=== PATIENT | female | born 1980 | race Caucasian/White ===

== ENCOUNTER 2016-08-19 21:43 | Emergency (ER) | payer MEDICAID, MEDICARE, OTHER ==
[2016-08-19 22:08] VITALS: RESP 20; O2SAT 100
[2016-08-19] MEDS ORDERED: Sodium Chloride 0.9% 1,000 ML IV ONE (22:15)
--- NOTE | 2016-08-19 22:15 | C.PDOC ---
History Of Present Illness Patient presents to the ED complaining of vaginal bleeding since earlier tonight. Patient states she is 14 weeks ; 4, para 3. Patient also complains of a mild headache. Patient denies fever, chills, nausea, or vomiting. Time Seen by Provider: 08/19/16 22:15 Chief Complaint (Nursing): Female Genitourinary History Per: Patient History/Exam Limitations: no limitations Onset/Duration Of Symptoms: Hrs (tonight) Current Symptoms Are (Timing): Still Present Severity: Mild Pain Scale Rating Of: 3 Quality Of Discomfort: "Pain" Associated Symptoms: Other (headache) Alleviating Factors: None Recent travel outside of the [place]: No Abnormal Vaginal Bleeding: Yes : 4 Para: 3 Past Medical History Reviewed: Historical Data, Nursing Documentation, Vital Signs Vital Signs: Last Vital Signs Temp 98.4 F 08/19/16 22:05 Pulse 103 H 08/19/16 22:05 Resp 20 08/19/16 22:05 BP 123/81 08/19/16 22:05 Pulse Ox 100 08/19/16 23:15 Family History: States: Unknown Family Hx - Social History Hx Alcohol Use: No Hx Substance Use: No - Immunization History Hx Tetanus Toxoid Vaccination: No Hx Influenza Vaccination: No Hx Pneumococcal Vaccination: No Review Of Systems Constitutional: Negative for: Fever, Chills Cardiovascular: Negative for: Chest Pain Respiratory: Negative for: Shortness of Breath Gastrointestinal: Negative for: Nausea, Vomiting Genitourinary: Positive for: Vaginal Bleeding Skin: Negative for: Rash, Lesions, Jaundice Neurological: Positive for: Headache Psych: Negative for: Anxiety Physical Exam - Physical Exam Appears: Non-toxic, No Acute Distress Skin: Warm, Dry Head: Atraumatic, Normacephalic Eye(s): bilateral: PERRL, EOMI Oral Mucosa: Moist Neck: Supple Chest: Symmetrical Cardiovascular: Rhythm Regular Respiratory: No Rales, No Rhonchi, No Wheezing Gastrointestinal/Abdominal: Soft, No Tenderness, No Guarding, No Rebound Back: No CVA Tenderness Extremity: Bilateral: Atraumatic, Normal Color And Temperature Neurological/Psych: Oriented x3, Normal Speech, Normal Cognition Gait: Steady ED Course And Treatment - Laboratory Results Result Diagrams: 08/19/16 23:40 08/19/16 23:40 O2 Sat by Pulse Oximetry: 100 (RA) Pulse Ox Interpretation: Normal - CT Scan/US OB US Other Rad Studies (CT/US): Read By Radiologist (Lefty Irvin MD), Radiology Report Reviewed CT/US Interpretation: FINDINGS: Fetus: Intrauterine is present. Yolk sac is not seen. The fetus is 8.2 cm, 14 weeks and 1. day gestation. Placenta/ amniotic fluid: Cannot be adequately evaluated due to the early gestational age. Uterus/cervix: Cervix is closed 4.2 cm. The uterus measures 13.9 cm. No myometrial mass. Ovaries: Maternal ovaries are not well seen. Free fluid: No free fluid. Other findings: FHR 146 beats per minute. IMPRESSION: Cheung viable , 14 weeks 1 day gestation. The cervix appears closed. Progress Note: Plan: Labs, Macrobid, IV fluids, Tylenol, OB US Reevaluation Time: 00:20 Reassessment Condition: Improved Disposition Counseled Patient/Family Regarding: Studies Performed, Diagnosis, Need For Followup, Rx Given - Disposition Referrals: [facility] [Outside] Disposition: HOME/ ROUTINE Disposition Time: 22:15 Condition: FAIR Prescriptions: Nitrofurantoin Macrocrystals [Macrobid] 1 cap PO BID #14 cap Instructions: Threatened Miscarriage (ED), Urinary Tract Infection in (ED) - Clinical Impression Clinical Impression: Threatened , UTI (urinary tract infection) - Scribe Statement The provider has reviewed the documentation as recorded by the Scribe Ayana Raman Provider Attestation: All medical record entries made by the Scribe were at my direction and personally dictated by me. I have reviewed the chart and agree that the record accurately reflects my personal performance of the history, physical exam, medical decision making, and the department course for this patient. I have also personally directed, reviewed, and agree with the discharge instructions and disposition.
[2016-08-19 22:30] LABS: URINE BACTERIA MOD (<OCC); URINE BILIRUBIN NEGATIVE (NEGATIVE); URINE BLOOD NEGATIVE (NEGATIVE); URINE GLUCOSE (UA) NORMAL (Normal); URINE KETONE 2+ mg/dL (NEGATIVE); URINE LEUKOCYTE ESTERASE 2+ Leu/uL (Negative); URINE PROTEIN 1+ mg/dL (NEGATIVE); URINE UROBILINOGEN NORMAL mg/dL (0.2-1.0); WBC URINE 48 /hpf (0-5)
[2016-08-19 22:56] LABS: URINE COLOR YELLOW (YELLOW)
[2016-08-19] MEDS ORDERED: Sodium Chloride 0.9% 1,000 ML ONE (23:18)
[2016-08-19 23:44] LABS: BASO # 0.1 K/uL (0.0-0.2); BASO % 1.1 % (0.0-2.0); EOS # 0.1 K/uL (0.0-0.7); EOS % 1.5 % (0.0-4.0); HEMATOCRIT 39.5 % (34.0-47.0); LYMPH % 25.8 % (20.0-40.0); MEAN CELL VOLUME 83.9 fL (81.0-99.0); MEAN CORPUSCULAR HEMOGLOBIN 27.2 pg (27.0-31.0); MEAN CORPUSCULAR HGB CONC 32.4 g/dL (33.0-37.0); MEAN PLATELET VOLUME 7.7 fL (7.2-11.7); MONO # 0.5 K/uL (0.0-0.8); MONO % 6.8 % (0.0-10.0); RED CELL DISTRIBUTION WIDTH 13.2 % (11.5-14.5); WHITE BLOOD COUNT 7.9 K/uL (4.8-10.8)
[2016-08-19 23:53] LABS: CHLORIDE 105 mmol/L (98-107); SODIUM 135 mmol/L (132-148)
[2016-08-19 23:54] LABS: POTASSIUM 4.2 mmol/L (3.6-5.2)
[2016-08-19 23:56] LABS: ALB/GLOB RATIO 1.1 (1.0-2.1); ALKALINE PHOSPHATASE 56 U/L (38-126); ALT/SGPT 23 U/L (9-52); AST/SGOT 30 U/L (14-36); BILIRUBIN,TOTAL 0.6 mg/dL (0.2-1.3); BLOOD UREA NITROGEN 11 mg/dL (7-17); CARBON DIOXIDE 18 mmol/L (22-30); GFR AFRICAN-AMERICAN > 60; GLUCOSE,RANDOM 84 mg/dL (65-105)
[2016-08-19 23:57] LABS: CALCIUM 8.5 mg/dl (8.6-10.4)
[2016-08-20 01:02] VITALS: BP 139/80; PULSE 88; TEMP 98
--- NOTE | 2016-08-20 10:22 | US ---
Pelvic ultrasound History: Vaginal bleeding. Comparison: None available. Technique: Real-time sonography was performed through the pelvis utilizing transabdominal technique. Findings: Limited study for viability purposes only. Dedicated anatomic survey recommended at an interval date. Uterus: 13.9 x 8.7 x 10.4 centimeters. Anteverted. Cervix measures 4.2 centimeters. Intrauterine gestational sac identified. Shelburn-rump length measures 8.3 centimeters corresponding to a gestational age of 14 weeks and 1 day. heart rate of 146 beats per minute. No free fluid in the pelvic cul-de-sac. Bilateral ovaries not well visualized. Impression: Limited ultrasound for viability purposes only. Dedicated anatomic survey at an interval date is recommended. Single viable intrauterine corresponding to a gestational age of approximately 14 weeks and 1 day by crown-rump length of 8.3 centimeters. Limited 1st trimester ultrasound for viability purposes only. Continued interval followup with serial ultrasound, serial HCG levels, and gynecological consultation would be helpful if clinically indicated. These findings were preliminarily reported at 11:01 p.m. on 08/19/[address] Lefty Irvin from [employer].
== END 2016-08-20 01:10 | disposition home or self-care (01) ==
LOC: C.ER 21:43
DX: O20.0 Threatened abortion (principal); O23.42 Unspecified infection of urinary tract in pregnancy, second trimester; Z3A.14 14 weeks gestation of pregnancy
CPT/HCPCS: 76815; 80053; 81001; 84702; 84703; 85025; 85610; 85730; 86850; 86900; 96360; 99284; J7040

== ENCOUNTER 2016-12-17 02:02 | Emergency (ER) | payer MEDICAID, MEDICARE, OTHER ==
[2016-12-17 02:16] VITALS: TEMP 98.1; O2SAT 98
[2016-12-17] MEDS ORDERED: Albuterol-Ipratrop 3 mg / 0.5 (3 ml) UD INH STA (02:34)
[2016-12-17] MEDS ORDERED: Albuterol-Ipratrop 3 mg / 0.5 (3 ml) UD ONE (02:56)
--- NOTE | 2016-12-17 03:07 | C.PDOC ---
History Of Present Illness The patient reports that she has been experiencing headache and body aches which is associated with runny nose and cough. The patient reports that she has a PMHx of asthma and has been taking an inhaler with only mild relief. Denies fever, vomiting, hemoptysis. Patient also reports 3 day history of vaginal spotting and pelvic pain. Time Seen by Provider: 12/17/16 02:19 Chief Complaint (Nursing): Shortness Of Breath History Per: Patient History/Exam Limitations: no limitations Onset/Duration Of Symptoms: Persistent Current Symptoms Are (Timing): Still Present Initiating Event: Upper Respiratory Illness Quality: Aching Current Respiratory Medications: Albuterol Associated Symptoms: denies: Fever, Chills, Bloody Cough, Heart Racing, Leg/ Calf Pain, Ankle/Leg Swelling Past Medical History Reviewed: Historical Data, Nursing Documentation, Vital Signs Vital Signs: Last Vital Signs Temp 98.1 F 12/17/16 02:10 Pulse 80 12/17/16 03:00 Resp 16 12/17/16 03:00 BP 110/70 12/17/16 03:00 Pulse Ox 98 12/17/16 05:13 - Medical History PMH: Asthma Family History: States: Unknown Family Hx - Social History Hx Alcohol Use: No Hx Substance Use: No - Immunization History Hx Tetanus Toxoid Vaccination: No Hx Influenza Vaccination: No Hx Pneumococcal Vaccination: No Review Of Systems Except As Marked, All Systems Reviewed And Found Negative. Physical Exam - Physical Exam Appears: Well, No Acute Distress Skin: Normal Color, Warm, Dry, No Rash Head: Atraumatic, Normacephalic Eye(s): bilateral: Normal Inspection, PERRL, EOMI Nose: Normal Oral Mucosa: Moist Throat: Normal, No Erythema, No Exudate Neck: Normal ROM, Supple Lymphatic: Normal Exam Chest: Symmetrical, No Tenderness Cardiovascular: Rhythm Regular, No Friction Rub, No Murmur Respiratory: Normal Breath Sounds, No Rales, No Rhonchi, No Stridor, No Wheezing Gastrointestinal/Abdominal: Normal Exam, Soft, No Tenderness Back: Normal Inspection, No CVA Tenderness Extremity: Normal ROM, No Swelling Neurological/Psych: Oriented x3, Normal Speech, Normal Cranial Nerves, Normal Motor Gait: Steady ED Course And Treatment O2 Sat by Pulse Oximetry: 98 (on RA) Pulse Ox Interpretation: Normal Medical Decision Making Medical Decision Making: \The case was discussed with Dr. Piedra ([facility]) who agrees the symptoms sound like bronchitis, and it is safe to given predisone and claritiin at this time. Dr. Piedra also states to have the patient sent to L&D floor for monitoring after treatment. Disposition - Disposition Referrals: [facility] [Outside] Disposition: HOME/ ROUTINE Disposition Time: 03:05 Condition: GOOD Additional Instructions: Follow up with the Medical doctor within 1-2 days. return if worsened, Prescriptions: Loratadine [Claritin] 10 mg PO DAILY #10 tab predniSONE [Prednisone] 20 mg PO BID #10 tab Instructions: Acute Bronchitis (ED) Forms: [facility] (Swedish) - Clinical Impression Clinical Impression: Bronchitis
[2016-12-17 03:32] VITALS: BP 110/70; PULSE 80; RESP 16
--- NOTE | 2016-12-17 03:59 | OBDCSUM ---
Datetime: 12/17/2016 03:57 Discharged to, Provider: Home Follow up at, Provider: fridy Follow up at, Provider: DR MODI Disch Instr Activity: Normal activity Disch Instr Diet: Regular Discharge Time: 12/17/2016 03:57 Follow up in weeks, Provider: uday Follow up in weeks, Provider: NEXT APPT Discharge Comment, Provider: dc home ptl given po hyration f/u dr modi on friday Discharge Diagnosis Prov Other: 31week nst asth,a exerbation
--- NOTE | 2016-12-17 04:00 | OBHP ---
Datetime: 12/17/2016 03:55 IP Adm Impression: , intrauterine IP Chief Complaint Other: nst IP Admit Plan: Discharge home Admit Comment, IP Provider: at 31weeks send from er for nst . pt was in the er for asthma exerb ation. fels better. no ctxs, vb, lof,+fm.no sob obhx 3 x pmh asthma med albutrol all nkda ph de soch de /p at 31weks asthma exerbation/nst dc home ptl given po hyration f/u dr frye on friday Pelvic Type - PN: Adequate Extremities - PN: Normal Abdomen - PN: Normal Back - PN: Normal Breast - PN: Normal Lungs - PN: Normal Heart - PN: Normal Thyroid - PN: Normal Neurologic - PN: Normal HEENT - PN: Normal General - PN: Normal FHR - Baseline A Provider: 130 Contraction Comments Provider: none Vital Signs Provider: Reviewed; Within Normal Limits NICHD Variability Prov Fetus A: Moderate 6-25bpm NICHD Accel Fetus A IP Provider: 10X10 FHR Category Provider Fetus A: Category I Genitourinary Exam: Normal DTRs - PN: Normal
== END 2016-12-17 04:00 | disposition home or self-care (01) ==
LOC: C.EROB 02:02 → C.ER 02:02 → C.EROB 03:31
DX: O99.513 Diseases of the respiratory system complicating pregnancy, third trimester (principal); J40 Bronchitis, not specified as acute or chronic; Z3A.31 31 weeks gestation of pregnancy

== ENCOUNTER 2017-01-07 00:48 | Emergency (ER) | payer MEDICAID ==
[2017-01-07 01:48] VITALS: BMI 36.8
[2017-01-07] MEDS ORDERED: Betamethasone Soluspan 30 mg/5mL Inj Susp IM ONE (01:50)
[2017-01-07] MEDS ORDERED: Magnesium Sulfate 4 gm/100 ml 4 GM/100 ML BAG IVPB ONE (01:51)
[2017-01-07] MEDS ORDERED: Lactated Ringer's 1,000 ML IV SCH (02:00)
--- NOTE | 2017-01-07 02:35 | OBHP ---
Datetime: 01/07/2017 02:05 IP Adm Impression: , intrauterine IP Chief Complaint Other: Abdominal pressure IP Adm Impression Other: Threatened labor IP Admit Plan: Initiate labor protocol IP Admit Plan Other: Transfer to [facility] Admit Comment, IP Provider: 36 y.o. , LMP unsure, JONATHAN 02/12/17, EGA 34w 6d c/o sharp lower a bdominal pain "on and off" x 1 month, ... "now more constant"; described as pressure "like I'm in lab or", pain scale 10/10. And vaginal spotting, also on and off x 1 month. (+) AFM; denies LOF. Prenata l care: Dr. Madrid; last visit 12/27/16; next visit 01/17/17; denies any issues, except UTI in first or second trimester. P OB: x 3, all FT, 1995, female, 6lb 2oz, gest HTN; LICH; 1997, female 6lb 3oz, [facility] ; 2006, male 7lb 2oz, [facility]. 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 Denies STIs PMH: h/o asthma PSH: D_C x 2; 2006, fractured bones in left ankle - rods and pins placed; 2007, removal of fluid f rom knees, bilaterally; 2010, abdominoplasty NKDA Food allergy = seafood - swelling, shortness of breath Soc Hx: prev tobacco use prior to pre cig / day on and off x 10 years. Denies current EtOH use ; deines illicit drug use. With current FOB x 6-7 months; (+) cohabitation. Fam Hx: Mother alive 63 y.o. HTN. Father age 50+ - S/P CVA and AR wiwth H/O HTN. Pat au nt - throat cancer P.E.: as above. Mild obese in some discomfort, NAD. Awake, alert. oriented to time, person and pl eusebio. FOB present Assesment: 36 y.o. P3023, 34w 6d, threatened PTL. Category 1 tracing. Discussed with patient: 1) administraiton of celestone for lung maturity, and mitigating NEC and IVH; 2) magnesium sulphat e to slow down/stop contractions; 3) antibiotics - prophylaxis for any possible infection; 4) transfe r to [facility] institution as a precaution for delivery. This was after discussion with her private Ob provider Dr. Madrid. Patient expressed an understanding and agrees to the transfer. Dr. Laura prieto spoke with M, Dr. Allred; Dr. Allred has accepted the transfer. Patient is clinically stble. Plan: 1) Transfer to [facility] 2) Ampicillin 2gm IVPB x 1 3) Magnesium sulphate 4 mg load over 30 minutes 4) Celestone 12 mg IM x 1 dose 5) U/A 6) Drug screen - as per, and discussed, with Dr. Madrid Pelvic Type - PN: Adequate Extremities - PN: Normal Abdomen - PN: Normal Back - PN: Normal Breast - PN: Not Done Lungs - PN: Normal Heart - PN: Normal Thyroid - PN: Not Done Neurologic - PN: Normal HEENT - PN: Normal General - PN: Normal Presentation-Admit: Vertex FHR - Baseline A Provider: 130 Membranes, Provider: Intact Contraction Comments Provider: minimal uterine irritability Comments, ACOG Physical Exam: Abdomen: Gravid. Soft. (+) suprapubic tenderness. Healed abdominoplas ty scar All other systems reviewed and are negative Gestation - Est Wks by US: 34w 6d EGA AdmitDate IP: 34.6 Vital Signs Provider: Reviewed; Within Normal Limits IP Chief Complaint: Other NICHD Variability Prov Fetus A: Moderate 6-25bpm NICHD Accel Fetus A IP Provider: 15X15 FHR Category Provider Fetus A: Category I NICHD Decel Fetus A IP Provider: None Dilatation, Provider: 2-3 Effacement, Provider: 40 Station, Provider: -3 to -2 Genitourinary Exam: Normal DTRs - PN: Not Done
[2017-01-07 02:45] LABS: RBC URINE 6 /hpf (0-3); URINE BACTERIA OCC (<OCC); URINE BILIRUBIN NEGATIVE (NEGATIVE); URINE COLOR Amber (YELLOW); URINE GLUCOSE (UA) NORMAL (Normal); URINE HYALINE CAST 0-2 /lpf (0-2); URINE KETONE 2+ mg/dL (NEGATIVE); URINE LEUKOCYTE ESTERASE 2+ Leu/uL (Negative); URINE PROTEIN 1+ mg/dL (NEGATIVE); URINE UROBILINOGEN NORMAL mg/dL (0.2-1.0); WBC URINE 10 /hpf (0-5)
[2017-01-07 02:48] LABS: URINE BLOOD TRACE (NEGATIVE)
[2017-01-13 14:49] VITALS: BP 128/62; PULSE 86; RESP 20; TEMP 98.1
== END 2017-01-07 02:58 | disposition short-term general hospital (02) ==
LOC: C.EROB 00:48
DX: O26.893 Other specified pregnancy related conditions, third trimester (principal); R10.30 Lower abdominal pain, unspecified; Z3A.34 34 weeks gestation of pregnancy
CPT/HCPCS: 80324; 80345; 80346; 80349; 80353; 80358; 80361; 81001; 83992; 99283; J0290; J0702; J3475; J7120

== ENCOUNTER 2017-02-03 13:19 | Inpatient (IN) | payer MEDICAID ==
--- NOTE | 2017-02-03 13:52 | OBADHP ---
Datetime: 02/03/2017 13:11 Admit Comment, IP Provider: 36 y.o. , LMP unsure, JONATHAN 02/12/17, EGA 38w 5d c/o contraction p ain every 3-5 min with vaignal spotting, deies any lof, +FM> pt was seen by OBGYN earlier today c/o o f pain and sent in for evaluation and was 3cm dilated. Pt was hsopiatize at 34+ wk for labor and given steriods for lung maturity. P OB: x 3, all FT, 1995, female, 6lb 2oz, gest HTN; LICH; 1997, female 6lb 3oz, [facility] ; 2006, male 7lb 2oz, [facility]. 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 Denies STIs PMH: h/o asthma PSH: D_C x 2; 2006, fractured bones in left ankle - rods and pins placed; 2007, removal of fluid f rom knees, bilaterally; 2010, abdominoplasty NKDA Food allergy = seafood - swelling, shortness of breath Soc Hx: prev tobacco use prior to pre cig / day on and off x 10 years. Denies current EtOH use ; deines illicit drug use. With current FOB x 6-7 months; (+) cohabitation. Fam Hx: Mother alive 63 y.o. HTN. Father age 50+ - S/P CVA and PR wiwth H/O HTN. Pat au nt - throat cancer Assesment: 36 y.o. P3023 @ 38.5 wks mulitparous in active labor, gbs positive admit to l=d npo, ivf admissin labs pcn for gbs prophylsicax anestheis prn Plan: 1) Transfer to [facility] 2) Ampicillin 2gm IVPB x 1 3) Magnesium sulphate 4 mg load over 30 minutes 4) Celestone 12 mg IM x 1 dose 5) U/A 6) Drug screen - as per, and discussed, with Dr. Madrid Pelvic Type - PN: Adequate Extremities - PN: Normal Abdomen - PN: Normal Back - PN: Normal Breast - PN: Not Done Lungs - PN: Normal Heart - PN: Normal Thyroid - PN: Normal HEENT - PN: Normal General - PN: Normal Weight - Estimated: 3300 Presentation-Admit: Vertex FHR - Baseline A Provider: 130 Membranes, Provider: Intact Gestation - Est Wks by US: 38.5 IP Hx Assessment: The History has been Reviewed and is Current Vital Signs Provider: Reviewed; Within Normal Limits IP Chief Complaint: Uterine contractions NICHD Variability Prov Fetus A: Moderate 6-25bpm NICHD Decel Fetus A IP Provider: None Dilatation, Provider: 5 Effacement, Provider: 70 Station, Provider: -2 Genitourinary Exam: Normal DTRs - PN: Normal EGA AdmitDate IP: 38.5 IP Adm Impression: Term, intrauterine IP Admit Plan: Admit to unit Datetime: 01/07/2017 02:05 IP Chief Complaint Other: Abdominal pressure IP Adm Impression Other: Threatened labor IP Admit Plan Other: Transfer to [facility] Neurologic - PN: Normal Contraction Comments Provider: minimal uterine irritability Comments, ACOG Physical Exam: Abdomen: Gravid. Soft. (+) suprapubic tenderness. Healed abdominoplas ty scar All other systems reviewed and are negative NICHD Accel Fetus A IP Provider: 15X15 FHR Category Provider Fetus A: Category I
[2017-02-03] MEDS ORDERED: Penicillin G 5 Million Unit Vial IVPB ONE ×3 (14:33→15:01)
[2017-02-03] MEDS ORDERED: Lactated Ringer's 1,000 ML IV SCH (14:45)
[2017-02-03] MEDS ORDERED: Nalbuphine 20 mg/ml Inj (1 ml) ONE ×2 (15:22→18:56)
[2017-02-03] MEDS ORDERED: Nalbuphine 20 mg/ml Inj (1 ml) IVP PRN ×2 (15:30→18:15)
[2017-02-03 16:19] LABS: BASO # 0.1 K/uL (0.0-0.2); BASO % 1.2 % (0.0-2.0); EOS # 0.2 K/uL (0.0-0.7); EOS % 2.4 % (0.0-4.0); HEMATOCRIT 34.7 % (34.0-47.0); LYMPH # 1.6 K/uL (1.0-4.3); LYMPH % 23.7 % (20.0-40.0); MEAN CELL VOLUME 83.8 fL (81.0-99.0); MEAN CORPUSCULAR HEMOGLOBIN 27.1 pg (27.0-31.0); MEAN CORPUSCULAR HGB CONC 32.4 g/dL (33.0-37.0); MEAN PLATELET VOLUME 8.7 fL (7.2-11.7); MONO # 0.6 K/uL (0.0-0.8); MONO % 9.2 % (0.0-10.0); RED CELL DISTRIBUTION WIDTH 13.5 % (11.5-14.5)
[2017-02-03] MEDS ORDERED: Oxytocin 30 UNIT 30 UNITS/500 ML BAG IV ONE (16:24)
[2017-02-03] MEDS ORDERED: Oxytocin 30 UNIT 30 UNITS/500 ML BAG IV SCH ×2 (16:30→18:45)
--- NOTE | 2017-02-03 17:06 | OBPN ---
Datetime: 02/03/2017 17:03 IP Progress Impression: Normal progression of labor IP Procedures: Artificial ROM IP Progress Plan: Continue present management Contraction Comments Provider: q 2 min FHR - Baseline A Provider: 125 Gestation - Est Wks by US: 38.5 Presentation-Admit: Vertex IP Progress Note Comment: pt seen and examined, reports intermitten pain , does not desire an peidur al. s/p iv pain medication VSS EMF: Cat I TOCO: q 2 min A/P P3 @ 38.5 wks GA in active labor -s/p AROM and pitoicn as per Dr Britany STEPHEN Variability Prov Fetus A: Moderate 6-25bpm Dilatation, Provider: 6 Effacement, Provider: 80 Station, Provider: -2 ZAFAR Decel Fetus A IP Provider: None Datetime: 02/03/2017 13:11 Membranes, Provider: Intact Weight - Estimated: 3300 Vital Signs Provider: Reviewed; Within Normal Limits Datetime: 01/07/2017 02:05 NICHD Accel Fetus A IP Provider: 15X15 FHR Category Provider Fetus A: Category I
[2017-02-03 17:10] LABS: RAPID PLASMA REAGIN NONREACTIVE (NONREACTIVE)
[2017-02-03] MEDS ORDERED: Oxycodone/Acetaminophen 5/325 mg Tab PO PRN (18:43)
[2017-02-03] MEDS ORDERED: Benzocaine/Menthol 20%-0.5% Topical Spray (60 ml) TOP PRN (18:43)
[2017-02-03] MEDS ORDERED: Lidocaine 2% Inj (20ml) ONE (19:01)
[2017-02-03] MEDS ORDERED: Oxycodone/Acetaminophen 5/325 mg Tab ONE (19:29)
[2017-02-03] MEDS: Oxycodone/Acetaminophen 5/325 mg Tab PO PRN (19:33)
[2017-02-04] MEDS: Oxycodone/Acetaminophen 5/325 mg Tab PO PRN ×3 (00:44→21:58)
--- NOTE | 2017-02-04 01:46 | OP ---
DELIVERY NOTE PROCEDURE DATE: DESCRIPTION OF PROCEDURE: The patient underwent a normal spontaneous vaginal delivery of a live female infant, Apgars 9 at 1 minute and 9 at 5 minutes, all by an intact perineum. The patient had a nuchal cords x1 and cord x1 around the leg, which were easily untangled. Cord that was doubly clamped and cut and the baby was handed over to the crimping machine operator who was in attendance. Cord blood was collected, placenta was manually removed and uterus was massaged with good hemostasis. Inspection of the perineum reviewed first degree superficial tear, which was closed with a single suture with 2-0 chromic after infiltration with lidocaine. Pad, needle, and instruments counts were x2. There were no complications. The patient was then transferred to the recovery room in stable condition. Ant Grissom MD
[2017-02-04 08:16] LABS: BASO % 0.3 % (0.0-2.0); EOS # 0.2 K/uL (0.0-0.7); EOS % 1.8 % (0.0-4.0); HEMATOCRIT 33.6 % (34.0-47.0); LYMPH # 1.8 K/uL (1.0-4.3); LYMPH % 19.3 % (20.0-40.0); MEAN CELL VOLUME 82.8 fL (81.0-99.0); MEAN CORPUSCULAR HEMOGLOBIN 27.8 pg (27.0-31.0); MEAN CORPUSCULAR HGB CONC 33.6 g/dL (33.0-37.0); MEAN PLATELET VOLUME 8.3 fL (7.2-11.7); MONO # 0.6 K/uL (0.0-0.8); RED CELL DISTRIBUTION WIDTH 13.5 % (11.5-14.5); WHITE BLOOD COUNT 9.6 K/uL (4.8-10.8)
[2017-02-04 08:34] LABS: CHLORIDE 104 mmol/L (98-107); POTASSIUM 3.8 mmol/L (3.6-5.2); SODIUM 137 mmol/L (132-148)
[2017-02-04 08:36] LABS: AST/SGOT 32 U/L (14-36); BILIRUBIN,TOTAL 0.5 mg/dL (0.2-1.3); CARBON DIOXIDE 22 mmol/L (22-30); GFR AFRICAN-AMERICAN > 60
[2017-02-04 08:37] LABS: ALB/GLOB RATIO 0.8 (1.0-2.1); ALKALINE PHOSPHATASE 113 U/L (38-126); ALT/SGPT 38 U/L (9-52); BLOOD UREA NITROGEN 6 mg/dL (7-17); CALCIUM 8.6 mg/dl (8.6-10.4); GLUCOSE,RANDOM 105 mg/dL (65-105); TOTAL PROTEIN 6.7 g/dL (6.3-8.3)
[2017-02-04 10:49] VITALS: O2SAT 98
[2017-02-05] MEDS: Oxycodone/Acetaminophen 5/325 mg Tab PO PRN (04:41)
[2017-02-05 08:35] VITALS: BP 107/61; PULSE 65; RESP 18; TEMP 97.9
[2017-02-05] MEDS ORDERED: Influenza Vaccine 60 mcg/0.5 mL SYR (4YR UP) IM ONE (11:11)
--- NOTE | 2017-02-05 13:46 | PN ---
DATE: SUBJECTIVE: The patient has no complaints. OBJECTIVE: VITAL SIGNS: Stable. She is afebrile. ABDOMEN: Soft. Bowel sounds are normal. Fundus is firm. Lochia is scant. EXTREMITIES: Nontender with no evidence of DVT. Gini's sign is negative. BREASTS: Reveal no engorgement. ASSESSMENT: The patient is status post normal spontaneous vaginal delivery, day 2. PLAN: Plan is to discharge the patient on Motrin 800 mg q.6 hourly p.r.n. for a total of 40 tablets, to be followed up in the office in 6 weeks. Ant Grissom MD
--- NOTE | 2017-02-05 16:26 | DS ---
The patient was admitted in early labor. She is 4, para 3 at 38 weeks' gestation. She underwent a normal spontaneous vaginal delivery over intact perineum, . She had no complaints. She was discharged home on day #2, on Motrin 800 mg q. 6 hours p.r.n. for a total of 40 tablets to be followed up in the office in 6 weeks. Ant Grissom MD MADONNA
--- NOTE | 2017-02-24 12:03 | OBDS ---
DELIVERY PERSONNEL Delivery Doctor: Deloris Grissom MD Recyclable Materials Sorter: Kyler Gambino RN MATERNAL INFORMATION Delivery Anesthesia: Local Medications in Delivery: methergine .2 mg.nubain 10 mg ivp [id number] Estimated Blood Loss (ml): 400 LABOR SUMMARY EDC: 02/12/2017 00:00 No. Babies in Womb: 1 Attempted: No Labor Anesthesia: IV Sedation LABOR INFORMATION Onset of Labor: 02/03/2017 10:00 Complete Dilatation: 02/03/2017 18:30 Oxytocin: Augmentation Group B Beta Strep: Positive MEMBRANES Membranes Rupture Method: Artificial Rupture of Membranes: 02/03/2017 16:57 Length of Rupture (hrs): 1.60 Amniotic Fluid Color: Bloody Amniotic Fluid Amount: Scant Amniotic Fluid Odor: Normal STAGES OF LABOR Stage 1 hrs: 8 Stage 1 min: 30 Stage 2 hrs: 0 Stage 2 min: 3 Stage 3 hrs: 0 Stage 3 min: 17 Total Time in Labor hrs: 8 Total Time in Labor min: 50 VAGINAL DELIVERY Laceration Type: Perineal Initial Vag Sponge Count: 10 Final Vag Sponge Count: 10 Sponge Count Correct: Yes Sharps Count Correct: Yes BABY A INFORMATION Infant Delivery Date/Time: 02/03/2017 18:33 Method of Delivery: Vaginal Born in Route : No : N/A Forceps: N/A Vacuum Extraction: N/A Shoulder Dystocia : No SHOULDER DYSTOCIA BABY A Delivery Date/Time: 02/03/2017 18:33 PRESENTATION/POSITION BABY A Presentation: Cephalic Cephalic Presentation: Vertex Vertex Position: Left Occipital Anterior Breech Presentation: N/A PLACENTA INFORMATION BABY A Placenta Delivery Time : 02/03/2017 18:50 Placenta Method of Delivery: Spontaneous Placenta Status: Delivered SCORES BABY A Heart Rate 1 min: >100 bpm Resp Effort 1 min: Good Cry Reflex Irritability 1 min: Cough or Sneeze or Pulls Away Muscle Tone 1 min: Active Motion Color 1 min: Body [place], Extremities Blue Resuscitation Effort 1 min: N/A SCORE 1 MIN: 9 Heart Rate 5 min: >100 bpm Resp Effort 5 min: Good Cry Reflex Irritability 5 min: Cough or Sneeze or Pulls Away Muscle Tone 5 min: Active Motion Color 5 min: Body [place], Extremities Blue Resuscitation Effort 5 min: N/A SCORE 5 MIN: 9 INFANT INFORMATION BABY A Gestational Age at Delivery: 38.6 Gestational Status: Term Outcome : Liveborn Condition : Stable Infant Sex: Female IDENTIFICATION/MEDS BABY A Sensor Applied: Yes WEIGHT/LENGTH BABY A Infant Birthweight (gms): 3250 Weight (lb): 7 Infant Weight (oz): 3 Length Inches: 19.50 Infant Length cms: 49.5 CORD INFORMATION BABY A No. Cord Vessels: 3 Nuchal Cord : Around Neck x1, Loose Nuchal Cord Other: body Cord Blood Taken: Yes Infant Suction: Mouth; Nose ASSESSMENT BABY A Complications: None Physical Findings at Delivery: Within Normal Limits Infant Respirations: Appears Normal Submarine Element Coordinator/ALS Called : No Transferred To: Remains with Mother
== END 2017-02-05 13:17 | disposition home or self-care (01) | DRG 373 ==
LOC: C.EROB 13:19 → C.4D 13:51 → C.4M 21:45
PROVIDERS: ADMIT Obstetrics & Gynecology Reproductive Endocrinology; ATTEND Obstetrics & Gynecology Reproductive Endocrinology
PROC: 10E0XZZ Delivery of Products of Conception, External Approach (ICD-10-PCS; principal; 2017-02-03)
PROC: 0HQ9XZZ Repair Perineum Skin, External Approach (ICD-10-PCS; 2017-02-03)
PROC: 10907ZC Drainage of Amniotic Fluid, Therapeutic from Products of Conception, Via Natural or Artificial Opening (ICD-10-PCS; 2017-02-03)
DX: O99.824 Streptococcus B carrier state complicating childbirth (principal); J45.909 Unspecified asthma, uncomplicated; O69.81X0 Labor and delivery complicated by cord around neck, without compression, not applicable or unspecified; O70.0 First degree perineal laceration during delivery; O69.82X0 Labor and delivery complicated by other cord entanglement, without compression, not applicable or unspecified; Z37.0 Single live birth; Z3A.38 38 weeks gestation of pregnancy; O99.52 Diseases of the respiratory system complicating childbirth; Z87.891 Personal history of nicotine dependence